=== PATIENT | female | born 1995 | race Two or more races ===

== ENCOUNTER 2023-01-03 21:42 | Emergency (ER) | payer MEDICAID, OTHER ==
[~2023-01-03] VITALS: Ht 160 cm; Wt 54.9 kg
[2023-01-03 22:20] LABS: Basophils # (auto) 0 10 ^3/uL (0-0.2); Basophils % (auto) 0.1 % (0.0-2.0); Eosinophils # (auto) 0 10 ^3/uL (0-0.8); Eosinophils % (auto) 0.4 % (0.0-7.0); Hematocrit 42.7 % (36.0-46.0); Hemoglobin 14.7 g/dL (12.2-16.2); Lymphocytes # (auto) 0.3 10 ^3/uL (0.4-5.4); Lymphocytes % (auto) 3.6 % (10.0-50.0); Mean Corpuscular Hgb Conc. 34.3 g/dL (32.0-36.0); Mean Corpuscular Volume 93.1 fL (80.0-100.0); Monocytes # (auto) 0.3 10 ^3/uL (0-1.3); Monocytes % (auto) 2.8 % (0.0-12.0); Neutrophils # (auto) 8.8 10 ^3/uL (1.6-8.6); Neutrophils % (auto) 93.1 % (37.0-80.0); Red Blood Cells 4.59 10^6/uL (4.0-5.20); White Blood Cell 9.5 10^3/uL (4.4-10.8)
[2023-01-03 22:42] LABS: Albumin 4.1 g/dL (3.4-5.0); Calcium 8.5 mg/dL (8.5-10.1); Magnesium 2.1 mg/dL (1.6-2.6); Potassium 3.5 mmol/L (3.5-5.1)
[2023-01-03 22:45] LABS: BUN/Creatinine Ratio 14.5 (10.0-20.0); Bilirubin, Total 0.7 mg/dL (0.2-1.0)
[2023-01-03] MEDS ORDERED: ONDANSETRON HCL 4 MG/2 ML VIAL IV ONE (22:45)
[2023-01-03] MEDS ORDERED: SODIUM CHLORIDE 0.9% 1,000 ML IV ONE (22:45)
[2023-01-03 23:50] LABS: Urine Bacteria FEW /hpf (None Seen); Urine Blood Negative /uL (Negative); Urine Mucus FEW (None Seen); Urine WBC 2 /hpf (0 - 5)
[2023-01-04 01:45] VITALS: BP 113/68
== END 2023-01-04 02:27 | disposition home or self-care (01) ==
LOC: ER 21:42
DX: O02.81 Inappropriate change in quantitative human chorionic gonadotropin (hCG) in early pregnancy (principal); R10.9 Unspecified abdominal pain; R42 Dizziness and giddiness; Z3A.01 Less than 8 weeks gestation of pregnancy; Z79.899 Other long term (current) drug therapy
CPT/HCPCS: 36415; 71046; 76801; 76817; 80053; 81001; 81025; 83690; 83735; 84484; 84702; 85025; 93005; 96361; 96374; 99285; J2405; J7030

== ENCOUNTER 2023-04-06 10:28 | Emergency (ER) | payer MEDICAID ==
[~2023-04-06] VITALS: Ht 160 cm; Wt 52.6 kg
[2023-04-06 11:06] LABS: Basophils # (auto) 0 10 ^3/uL (0-0.2); Basophils % (auto) 0.7 % (0.0-2.0); Eosinophils # (auto) 0 10 ^3/uL (0-0.8); Eosinophils % (auto) 0.4 % (0.0-7.0); Hematocrit 41.4 % (36.0-46.0); Hemoglobin 13.9 g/dL (12.2-16.2); Lymphocytes # (auto) 1.4 10 ^3/uL (0.4-5.4); Lymphocytes % (auto) 31.1 % (10.0-50.0); Mean Corpuscular Hemoglobin 31.3 pg (28.0-32.0); Mean Corpuscular Hgb Conc. 33.5 g/dL (32.0-36.0); Mean Corpuscular Volume 93.5 fL (80.0-100.0); Monocytes # (auto) 0.3 10 ^3/uL (0-1.3); Monocytes % (auto) 7.3 % (0.0-12.0); Neutrophils # (auto) 2.7 10 ^3/uL (1.6-8.6); Neutrophils % (auto) 60.5 % (37.0-80.0); Nucleated Red Blood Cells % 0.1 %; Red Blood Cells 4.43 10^6/uL (4.0-5.20); Red Cell Distribution Width 12.8 % (11.8-14.3); White Blood Cell 4.5 10^3/uL (4.4-10.8)
[2023-04-06 11:19] VITALS: BP 115/77; PULSE 76; RESP 18; TEMP 98.5; O2SAT 99
[2023-04-06 11:26] LABS: Urine Bacteria FEW /hpf (None Seen); Urine Blood 3+ /uL (Negative); Urine Clarity HAZY (Clear); Urine Color Yellow (Yellow); Urine Protein, UAD TRACE (Negative); Urine Specific Gravity 1.029 (1.001-1.035); Urine Urobilinogen Normal (Negative); Urine WBC 12 /hpf (0 - 5)
[2023-04-06 11:45] LABS: Alkaline Phosphatase 52 U/L (46-116); Anion Gap 7 (5-15); Aspartate Aminotransferase 9 U/L (13-40); BUN/Creatinine Ratio 9.2 (10.0-20.0); Bilirubin, Total 0.7 mg/dL (0.2-1.0); Blood Urea Nitrogen 6 mg/dL (9-23); Calcium 9.4 mg/dL (8.5-10.1); Carbon Dioxide 27 mmol/L (20-30); Chloride 107 mmol/L (98-107); Glucose 88 mg/dL (74-106); Potassium 3.9 mmol/L (3.5-5.1); Sodium 141 mmol/L (136-145); Total Protein 7.8 g/dL (5.7-8.2)
[2023-04-06 11:51] LABS: Alanine Aminotransferase < 9 U/L (7-40)
[2023-04-06] MEDS ORDERED: BACDST PO (12:32)
[2023-04-06] MEDS ORDERED: NAPR-746 PO (12:32)
== END 2023-04-06 12:44 | disposition home or self-care (01) ==
LOC: ER 10:28
DX: N39.0 Urinary tract infection, site not specified (principal); R10.2 Pelvic and perineal pain; N93.8 Other specified abnormal uterine and vaginal bleeding; Z32.02 Encounter for pregnancy test, result negative
CPT/HCPCS: 36415; 76856; 80053; 81001; 81025; 85025

== ENCOUNTER 2023-05-15 09:46 | Emergency (ER) | payer MEDICAID ==
[~2023-05-15] VITALS: Ht 160 cm; Wt 54.6 kg
[~2023-05-15 09:46] MED LIST: BACDST PO; NAPR-746 PO
[2023-05-15 13:48] VITALS: BP 144/100; PULSE 94; RESP 18; TEMP 97.4; O2SAT 99
[2023-05-15 14:01] LABS: COVID19 ANTIGEN SOFIA FIA NEGATIVE (NEGATIVE); Rapid Influenza A Negative (Negative); Rapid Influenza B Negative (Negative)
[2023-05-15] MEDS ORDERED: IBUP1TAB5 PO (14:23)
[2023-05-15] MEDS ORDERED: PROM1SOL4 PO (14:23)
[2023-05-15] MEDS ORDERED: KETOROLAC TROMETH 30 MG/ML 1ML VIAL IM ONE (14:30)
[2023-05-15] MEDS ORDERED: ACETAMINOPHEN 500 MG TAB PO ONE (14:30)
[2023-05-15] MEDS ORDERED: DexAMETHasone SOD PHOS 10MG/1ML VIAL INJ PO ONE (14:30)
== END 2023-05-15 15:09 | disposition home or self-care (01) ==
LOC: ER 09:46
DX: J06.9 Acute upper respiratory infection, unspecified (principal); R51.9 Headache, unspecified; Z20.822 Contact with and (suspected) exposure to COVID-19
CPT/HCPCS: 36415; 87426; 87804; 96372; 99283; J1100; J1885

== ENCOUNTER 2023-05-22 11:57 | Emergency (ER) | payer MEDICAID ==
[~2023-05-22] VITALS: Ht 160 cm; Wt 51.2 kg
[2023-05-22 11:57] VITALS: BP 110/79; RESP 16; O2SAT 100
[~2023-05-22 11:57] MED LIST changes: +IBUP1TAB5 PO; +PROM1SOL4 PO
[2023-05-22 12:48] LABS: Basophils # (auto) 0 10 ^3/uL (0-0.2); Basophils % (auto) 0.1 % (0.0-2.0); Eosinophils # (auto) 0 10 ^3/uL (0-0.8); Hematocrit 44.1 % (36.0-46.0); Hemoglobin 14.8 g/dL (12.2-16.2); Lymphocytes # (auto) 0.4 10 ^3/uL (0.4-5.4); Mean Corpuscular Hemoglobin 31.1 pg (28.0-32.0); Mean Corpuscular Hgb Conc. 33.5 g/dL (32.0-36.0); Mean Corpuscular Volume 92.9 fL (80.0-100.0); Monocytes # (auto) 0.6 10 ^3/uL (0-1.3); Monocytes % (auto) 5.3 % (0.0-12.0); Neutrophils # (auto) 10.8 10 ^3/uL (1.6-8.6); Neutrophils % (auto) 91.6 % (37.0-80.0); Nucleated Red Blood Cells % 0.5 %; Red Blood Cells 4.75 10^6/uL (4.0-5.20); White Blood Cell 11.8 10^3/uL (4.4-10.8)
[2023-05-22 13:11] LABS: Alanine Aminotransferase 16 U/L (7-40); Albumin 5.4 g/dL (3.2-4.8); Alkaline Phosphatase 79 U/L (46-116); Anion Gap 9 (5-15); Aspartate Aminotransferase 11 U/L (13-40); BUN/Creatinine Ratio 10.7 (10.0-20.0); Blood Urea Nitrogen 9 mg/dL (9-23); Calcium 9.3 mg/dL (8.5-10.1); Carbon Dioxide 24 mmol/L (20-30); Chloride 106 mmol/L (98-107); Glucose 123 mg/dL (74-106); Potassium 3.7 mmol/L (3.5-5.1); Sodium 139 mmol/L (136-145)
[2023-05-22 13:12] LABS: Bilirubin, Total 1.3 mg/dL (0.2-1.0); Total Protein 8.3 g/dL (5.7-8.2)
[2023-05-22 15:09] LABS: Urine Bacteria NONE SEEN /hpf (None Seen); Urine Blood 1+ /uL (Negative); Urine Clarity Clear (Clear); Urine Color Yellow (Yellow); Urine Mucus FEW (None Seen); Urine Protein, UAD 1+ (Negative); Urine Specific Gravity 1.022 (1.001-1.035); Urine Urobilinogen Normal (Negative); Urine WBC 3 /hpf (0 - 5)
[2023-05-22 15:42] VITALS: PULSE 106
[2023-05-22] MEDS ORDERED: METR-344 PO (16:14)
[2023-05-22] MEDS ORDERED: CEPH250C PO (16:14)
[2023-05-22] MEDS ORDERED: metroNIDAZOLE 500MG/100ML 100 ML IV ONE (16:15)
[2023-05-22] MEDS ORDERED: SODIUM CHLORIDE 0.9% 1,000 ML IV ONE (16:15)
[2023-05-22] MEDS ORDERED: cefTRIAXone 1GM/50ML D5W 50 ML IV ONE (16:15)
== END 2023-05-22 20:57 | disposition home or self-care (01) ==
LOC: ER 11:57
DX: K52.9 Noninfective gastroenteritis and colitis, unspecified (principal); R10.2 Pelvic and perineal pain; R42 Dizziness and giddiness; G43.909 Migraine, unspecified, not intractable, without status migrainosus; Z90.49 Acquired absence of other specified parts of digestive tract; Z79.1 Long term (current) use of non-steroidal anti-inflammatories (NSAID); Z79.899 Other long term (current) drug therapy
CPT/HCPCS: 36415; 70450; 74176; 80053; 81001; 83690; 84702; 85025; 93005; 96365; 96367; 99285; J0696; J3490; J7030

== ENCOUNTER 2023-06-06 05:02 | Emergency (ER) | payer MEDICAID ==
[~2023-06-06] VITALS: Ht 160 cm; Wt 54.5 kg
[~2023-06-06 05:02] MED LIST changes: +CEPH250C PO; +METR-344 PO
[2023-06-06 08:00] VITALS: PULSE 85; RESP 16; O2SAT 98
[2023-06-06] MEDS ORDERED: SODIUM CHLORIDE 0.9% 1,000 ML IV ONE (08:00)
[2023-06-06] MEDS ORDERED: PROCHLORPERAZINE EDISYLATE 5 MG/ML 2ML VIAL IV ONE (08:00)
[2023-06-06] MEDS ORDERED: diphenhdrAMINE HCL 50 MG/1 ML VL IV ONE (08:00)
[2023-06-06] MEDS ORDERED: KETOROLAC TROMETH 30 MG/ML 1ML VIAL IM ONE (08:00)
[2023-06-06 08:18] VITALS: BP 105/71; PULSE 89; RESP 18; TEMP 98.3; O2SAT 100
[2023-06-06] MEDS ORDERED: DexAMETHasone SOD PHOS 10MG/1ML VIAL INJ IV ONE (09:30)
== END 2023-06-06 10:33 | disposition home or self-care (01) ==
LOC: ER 05:02
DX: G43.909 Migraine, unspecified, not intractable, without status migrainosus (principal)
CPT/HCPCS: 96361; 96372; 96374; 96375; 99284; J0780; J1100; J1200; J1885; J7030

== ENCOUNTER 2023-09-04 08:55 | Emergency (ER) | payer MEDICAID ==
[~2023-09-04] VITALS: Ht 160 cm; Wt 55.3 kg
[2023-09-04 10:10] LABS: Basophils # (auto) 0 10 ^3/uL (0-0.2); Basophils % (auto) 0.5 % (0.0-2.0); Eosinophils # (auto) 0 10 ^3/uL (0-0.8); Eosinophils % (auto) 0.9 % (0.0-7.0); Hematocrit 45.2 % (36.0-46.0); Hemoglobin 15.2 g/dL (12.2-16.2); Lymphocytes # (auto) 1.3 10 ^3/uL (0.4-5.4); Lymphocytes % (auto) 23.8 % (10.0-50.0); Mean Corpuscular Hemoglobin 31.3 pg (28.0-32.0); Mean Corpuscular Hgb Conc. 33.7 g/dL (32.0-36.0); Monocytes # (auto) 0.4 10 ^3/uL (0-1.3); Monocytes % (auto) 7.1 % (0.0-12.0); Neutrophils # (auto) 3.7 10 ^3/uL (1.6-8.6); Neutrophils % (auto) 67.7 % (37.0-80.0); Nucleated Red Blood Cells % 0.2 %; Red Blood Cells 4.86 10^6/uL (4.0-5.20); Red Cell Distribution Width 13.5 % (11.8-14.3); White Blood Cell 5.5 10^3/uL (4.4-10.8)
[2023-09-04 10:14] LABS: Urine Bacteria MOD /hpf (None Seen); Urine Blood Negative /uL (Negative); Urine Clarity HAZY (Clear); Urine Color Yellow (Yellow); Urine Mucus FEW (None Seen); Urine Protein, UAD Negative (Negative); Urine Specific Gravity 1.028 (1.001-1.035); Urine Urobilinogen Normal (Negative); Urine WBC 3 /hpf (0 - 5); Urine pH 5.5 (5.0-8.0)
[2023-09-04 10:21] LABS: Chloride 108 mmol/L (98-107); Potassium 4.2 mmol/L (3.5-5.1); Sodium 141 mmol/L (136-145)
[2023-09-04 10:22] LABS: Anion Gap 6 (5-15); Calcium 9.6 mg/dL (8.5-10.1); Carbon Dioxide 27 mmol/L (20-30)
[2023-09-04 10:27] LABS: BUN/Creatinine Ratio 12.9 (10.0-20.0); Blood Urea Nitrogen 9 mg/dL (9-23); Glucose 95 mg/dL (74-106)
[2023-09-04 11:53] VITALS: BP 122/70; PULSE 79; RESP 16; O2SAT 99
== END 2023-09-04 11:55 | disposition home or self-care (01) ==
LOC: ER 08:55
DX: A08.4 Viral intestinal infection, unspecified (principal); Z90.49 Acquired absence of other specified parts of digestive tract; Z79.1 Long term (current) use of non-steroidal anti-inflammatories (NSAID); Z79.899 Other long term (current) drug therapy
CPT/HCPCS: 36415; 80048; 81001; 85025